=== PATIENT | female | born 1960 | race Two or more races ===

== ENCOUNTER 2024-04-28 11:31 | Emergency (ER) | payer MEDICAID, SELFPAY ==
[2024-04-28 13:00] VITALS: BP 148/82; PULSE 82; RESP 18; TEMP 37.2; O2SAT 96; BMI 31.4
--- NOTE | 2024-04-28 13:03 | XR_ITS ---
Examination: PA lateral chest 2 views Technique: Upright PA lateral chest 2 views Exam date and time: April 28, 2024 1335 hrs. Comparison October 10, 2018 Indication: Chest pain shortness of breath fever vomiting beginning 2 days ago Findings: Mild enlargement left ventricle Mild ectasia thoracic aorta No lobar pneumonia No pulmonary edema Impression: Mild prominence of ventricle No pneumonia or pulmonary edema
--- NOTE | 2024-04-28 13:03 | EKG_ITS ---
[facility] Test Date: 2024-04-28 Pat Name: FINN BRASHER Department: Room: - Gender: Female Manufacturing Planner: : 1960 Requested By: Coral Rader Order Number: [id number] Reading MD: Coral Rader Measurements Intervals [place] Rate: 72 P: -6 NV: 157 QRS: 0 QRSD: 83 T: 60 QT: 384 QTc: 420 Interpretive Statements SINUS RHYTHM LOW QRS VOLTAGE IN PRECORDIAL LEADS [QRS DEFLECTION < 1.0 mV IN CHEST LEADS] ANTERIOR MYOCARDIAL INFARCTION , PROBABLY OLD [40+ ms Q WAVE AND/OR ST/T ABNORMALITY IN V3/V4] INFERIOR MYOCARDIAL INFARCTION , PROBABLY OLD [40+ ms Q WAVE AND/OR ST/T ABNORMALITY IN II/aVF] Compared to ECG 10/13/2022 14:34:08 Low QRS voltage now present Myocardial infarct finding still present /store/S0/[id number].pdf
--- NOTE | 2024-04-28 13:04 | PD.EDRME ---
Rapid Medical Screening Exam RME Arrival date/time: 04/28/24 11:31 This is a 63-year-old female that comes in with complaints of chest pain, shortness of breath, fever, vomiting, diarrhea, fatigue, weakness, and headache that started 2 days ago. Patient states her also is sick. Patient has a history of diabetes, hyperlipidemia, diverticulosis, high blood pressure, hypothyroid, neuropathy. Patient reports a history of a hysterectomy in the past. I have greeted and performed a focused initial assessment of this patient. Initial appropriate labs ordered at this time. A comprehensive ED assessment and evaluation of the patient and analysis of all test and completion of medical decision making process will be conducted by additional ED provider. Chief Complaint: Flu Like Symptoms Time Seen by Provider: 04/28/24 11:59 Vital signs: Vital Signs Temperature 98.9 F 04/28/24 13:00 Pulse Rate 82 04/28/24 13:00 Respiratory Rate 18 04/28/24 13:00 Blood Pressure 148/82 H 04/28/24 13:00 Pulse Oximetry (%) 96 04/28/24 13:00 Oxygen Delivery Method Room Air 04/28/24 13:00
[2024-04-28] MEDS: ACETAMINOPHEN 500 MG TABLET 1000 MG PO (13:30)
[2024-04-28] MEDS: IBUPROFEN TAB 400 MG TABLET 800 MG PO (13:30)
[2024-04-28 14:22] LABS: Basophils # (Auto) 0.1 Thou/mm3 (0.0-0.2); Basophils % (Auto) 1 % (0-2.5); Eosinophils # (Auto) 0.1 Thou/mm3 (0.0-0.5); Eosinophils % (Auto) 1 % (0-10); Hematocrit 42.2 % (36.0-46.0); Hemoglobin 14.7 g/dL (12.0-16.0); Immature Granulocytes % (Auto) 1 % (0-0); Immature Granulocytes Auto 0.04 Thou/mm3 (0.00-0.00); Lymphocytes # (Auto) 1.6 Thou/mm3 (1.0-4.8); Lymphocytes % (Auto) 25 % (10-50); Mean Corpuscular HGB Conc 34.8 g/dl (31.0-37.0); Mean Corpuscular Hemoglobin 30.8 pg (25.0-35.0); Mean Corpuscular Volume 88 fL (80-100); Monocytes # (Auto) 0.9 Thou/mm3 (0.0-0.8); Monocytes % (Auto) 14 % (0-12); Neutrophils # (Auto) 3.6 Thou/mm3 (1.8-7.7); Neutrophils % (Auto) 58 % (37-80); Nucleated Red Blood Cell % 0 /100 WBC (0); Platelet Count 280 Thou/mm3 (140-440); RDW Standard Deviation 39.6 fL (36.4-46.3); Red Blood Count 4.78 Miln/mm3 (4.00-5.20); White Blood Count 6.3 Thou/mm3 (3.6-11.0)
[2024-04-28 14:41] LABS: B-Type Natriuretic Peptide 67 pg/mL (0-100)
[2024-04-28 14:42] LABS: Alanine Aminotransferase 32 U/L (10-49); Albumin, Serum 4.4 gm/dL (3.4-4.8); Albumin/Globulin Ratio 1.9 (1.2-2.2); Alkaline Phosphatase 104 U/L (46-116); Anion Gap 7 (7-16); Aspartate Amino Transferase 25 U/L (0-34); BUN/Creatinine Ratio 11 Ratio (12-20); Bilirubin,Total 0.5 mg/dL (0.3-1.2); Blood Urea Nitrogen 9 mg/dL (9-23); Calcium 9.6 mg/dL (8.3-10.6); Calcium (Corrected) 9.6 mg/dL (8.5-10.1); Carbon Dioxide 28.6 mMol/L (20.0-31.0); Chloride 105 mMol/L (98-107); Creatinine (Component) 0.8 mg/dL (0.6-1.3); Estimated Creatinine Clearance 79.8 mL/min (>60); Globulin 2.3 gm/dL (2.3-3.5); Glucose 116 mg/dL (74-106); Osmolality,Calculated 280 (275-295); Potassium 3.8 mMol/L (3.4-5.1); Sodium 141 mMol/L (136-145); Total Protein 6.7 gm/dL (5.7-8.2); Troponin I < 0.020 ng/mL (0.0-0.045); eGFR > 60 See Note
--- NOTE | 2024-04-28 15:34 | PD.EDURI ---
Upper Respiratory Inf. RME/HPI General Chief Complaint: Flu Like Symptoms Stated Complaint: COUGH WITH SOB X YESTERDAY Time Seen by Provider: 04/28/24 11:59 Arrival date/time: 04/28/24 11:31 RME / HPI RME / HPI Narrative: 04/28/24 11:31 This is a 63-year-old female that comes in with complaints of chest pain, shortness of breath, fever, vomiting, diarrhea, fatigue, weakness, and headache that started 2 days ago. Patient states her also is sick. Patient has a history of diabetes, hyperlipidemia, diverticulosis, high blood pressure, hypothyroid, neuropathy. Patient reports a history of a hysterectomy in the past. I have greeted and performed a focused initial assessment of this patient. Initial appropriate labs ordered at this time. A comprehensive ED assessment and evaluation of the patient and analysis of all test and completion of medical decision making process will be conducted by additional ED provider. DR. PATRICK MAIN ED EVALUATION: 63 year old female presents to the Emergency Department with complaints of cough, congestion, fatigue, generalized weakness, mild headache, generalized body aches, chest pain, vomiting, and diarrhea. Onset of symptoms 2 days. Symptoms are mild to moderate. Denies any abdominal pain or other symptoms at this time. PMHx: Diabetes, hypertension, neuropathy, hypothyroidism. Hysterectomy. Social Hx: No tobacco, alcohol, or substance use. Related Data Home Medications ?Medication ?Instructions ?Recorded ?Confirmed metformin 500 mg tablet 500 mg PO BID DIABETES ##0 06/27/12 03/19/19 gabapentin 300 mg capsule 300 mg PO TID #0 caps 03/07/17 03/19/19 levothyroxine 25 mcg capsule 25 mcg PO QDAY 01/04/18 03/19/19 simvastatin 20 mg tablet 20 mg PO HS 01/04/18 03/19/19 lisinopril 10 mg tablet 10 mg PO QDAY 02/20/19 03/19/19 ergocalciferol (vitamin D2) 1,250 50,000 unit PO QWEEK 03/19/19 03/19/19 mcg (50,000 unit) capsule (Vitamin D2) sitagliptin phosphate 100 mg 100 mg PO QDAY 03/19/19 03/19/19 tablet (Januvia) Previous Rx's ?Medication ?Instructions ?Recorded diazepam 2 mg tablet (Valium) 2 mg PO BID PRN anxiety #10 tabs 06/19/23 azithromycin 250 mg tablet See Rx Instructions PO .COMPLEX #6 04/28/24 (Zithromax Z-Silverio) tabs oseltamivir 75 mg capsule (Tamiflu) 75 mg PO BID 5 days #10 caps 04/28/24 Allergies Allergy/AdvReac Type Severity Reaction Status Date / Time adhesive tape Allergy Severe Rash Verified 04/28/24 11:32 hydroxyzine Allergy Severe Hives Verified 04/28/24 11:32 prochlorperazine Allergy Severe Swelling Verified 04/28/24 11:32 temazepam [From Restoril] Allergy Severe Hives Verified 04/28/24 11:32 Review of Systems Review of Systems Systems Reviewed: All systems reviewed, normal except as documented Narrative Review of Systems: GEN: No fever, no chills, no weight loss, + fatigue/ generalized weakness EYES: No discharge, no visual changes, no pain HEENT: No ear pain, + congestion, no sore throat PULM: No shortness of breath, + cough, + congestion CV: + chest pain, no dyspnea on exertion, no palpitations GI: No nausea, + vomiting, + diarrhea, no pain, no constipation : No frequency, no urgency and no dysuria MUSC/SKEL: + generalized body aches, no back pain SKIN: No rash PSYCH: No hallucinations, no depression HEME/LYMPH: No easy bleeding or bruising tendencies NEURO: No one-sided weakness, + mild headache Past Medical History Past Medical History NEUROLOGIC: Positive Neurological Disorders, Peripheral Neuropathy and Migraine CARDIAC: Positive Hypercholesterolemia and Hypertension; Negative Cardiac Disorders or Congestive Heart Failure RESPIRATORY: Positive Sleep Apnea; Negative Chronic Obstructive Pulmonary Disease (COPD) or Asthma GASTROINTESTINAL: Positive Gastrointestinal Disorders, Gall Bladder Disease, Diverticulitis, Irritable Bowel and Gastroesophageal Reflux Disease GENITOURINARY: Negative Genitourinary Disorders or Renal Disease REPRODUCTIVE: Positive Previous Pregnancies MUSCULOSKELETAL: Positive Musculoskeletal Disorders ENT: Positive Cataracts ENDOCRINE: Positive Endocrine Disorders, Diabetes Mellitus Type 2 and Hypothyroidism; Negative Diabetes Mellitus Type 1 HEMATOLOGIC: Negative Blood Disorders or Sickle Cell Disease PSYCHO/SOCIAL: Positive Anxiety OTHER HISTORY: Positive Chicken Pox, Measles, Mumps, Cancer and Ovarian Cancer Family History FAMILY HISTORY: Positive Family Cardiac Disorders and Family Cancer Surgical History SURGICAL: Positive Tonsillectomy, Throat Surgery, Abdominal Surgery, Hysterectomy and Tubal Ligation Social History SMOKING STATUS: Never smoker SUBSTANCE USE: does not use ALCOHOL: Never ED Exam Narrative Physical exam: GENERAL APPEARANCE: Well hydrated, well nourished, in no acute distress. VITALS: All vitals were reviewed and the pulse ox is 96% on room air which is normal according to my interpretation. HEENT: Normocephalic, atramatic, EOMI, EACs are patent. There is no bulge or retraction. Throat without erythema or exudate. Moist oromucosa. No jaundice NECK: Supple, no JVD or bruits. CARDIOVASCULAR: Heart regular without S3-S4 or murmur. No rubs or gallops. LUNGS/CHEST: Clear to auscultation bilaterally. No rales, rhonchi, or wheezing. Normal inspection. ABDOMEN: Soft, nontender, with normal bowel sounds. No pulsatile masses. No rebound, rigidity, or guarding. No incarcerated hernia. Normal inspection and palpation. EXTREMITIES: No edema, clubbing, or cyanosis. Intact CSM. Normal inspection and palpation. SKIN: Warm and dry without rashes. Normal inspection. MUSCULOSKELETAL: No gross deformity, full ROM all extremities. Normal inspection. NEURO: Alert and oriented x3. Cranial nerves II through XII grossly intact. There are no other motor or sensory deficits noted. PSYCHIATRIC: Normal mood and affect. No psychosis. Course Quality Measures none Orders Category Date Time Status Bedside COVID-19 Antigen Test NOW Care 04/28/24 13:03 Active Bedside Influenza A&B Antigen Test NOW Care 04/28/24 13:03 Completed EKG (ED ONLY) *Do not use* NOW Care 04/28/24 13:03 Completed EKG (ED Only) Stat Exams 04/28/24 13:03 Draft XR chest 2V Stat Exams 04/28/24 13:03 Taken BNP [B-Type Natriuretic Peptide] Stat Lab 04/28/24 14:12 Completed CBC Stat Lab 04/28/24 14:12 Completed Comprehensive Metabolic Panel Stat Lab 04/28/24 14:12 Completed Troponin I Stat Lab 04/28/24 14:12 Completed Acetaminophen Tab [Tylenol ES Tab] Med 04/28/24 13:03 Discontinued 1,000 mg PO X1 ONE Ibuprofen Tab [Motrin Tab] Med 04/28/24 13:03 Discontinued 800 mg PO X1 ONE Vital Signs Vital signs: Vital Signs Temperature 98.9 F 04/28/24 13:00 Pulse Rate 82 04/28/24 13:00 Respiratory Rate 18 04/28/24 13:00 Blood Pressure 148/82 H 04/28/24 13:00 Pulse Oximetry (%) 96 04/28/24 13:00 Oxygen Delivery Method Room Air 04/28/24 13:00 Upper Respiratory Infection MDM Narrative MDM Narrative:: I, Julita Kong, am scribing for and in the presence of Dr. Patrick. CBC negative. CMP negative. Troponin negative. BNP negative. COVID-19 negative. Influenza A is positive. Chest x-ray by me: Evidence of the left lower lobe infiltrates on the chest x-ray. Heart is normal. Mediastinum normal. Normal bones. Twelve-lead EKG that was done at 1318 and interpreted by me: Normal sinus rhythm. Heart rate is now 72. Normal axis. No ST elevation or depression. No PVC. No STEMI. Regular rate and rhythm. Old Q waves in leads III, aVF and V3 V4. Patient is walking talking. No respiratory distress. And not sick looking. The pneumonia may be secondary to a superimposed bacterial infection. Therefore in addition to the Tamiflu I will also prescribe her some Zithromax. She should follow-up with her medical doctor in 3 days for recheck further care and repeat a chest x-ray. She should return the emergency department if condition worsens or if new symptoms develop. Patient data External records reviewed:: [facility] previous records (Reviewed last ED visit dated 06/19/23, discharged with the following: Contusion of arm, multiple sites.) Clinical information provided by:: patient Social determinants that could affect healthcare access:: none Patient has the following chronic illnesses:: Diabetes, hypertension, neuropathy, hypothyroidism. Hysterectomy. How is presenting disease/condition affected by chronic disease/condition?: uneffected by Evaluation data The following diagnostics were reviewed and interpreted by me:: lab results, radiology exam(s) and EKG tracing(s) Lab and/or radiology exams considered but not ordered:: none Interpretation Summary: See above under MDM narrative. Medications / Prescriptions Medications or Prescriptions considered but not ordered:: none Medication administrations:: Medication Administration History Discontinued Medications Acetaminophen (Acetaminophen 500 Mg Tablet) 1,000 mg PO X1 ONE Stop: 04/28/24 13:04 Last Admin: 04/28/24 13:30 Dose: 1,000 mg Documented By: GENEVIEVE Ibuprofen (Ibuprofen Tab 400 Mg Tablet) 800 mg PO X1 ONE Stop: 04/28/24 13:04 Last Admin: 04/28/24 13:30 Dose: 800 mg Documented By: GENEVIEVE see above Consultations Consultation(s) initiated? (list below): No Diagnosis Upper Respiratory Differential Diagnosis: upper respiratory infection, viral infection, bronchitis and influenza Most likely diagnosis given after review of the tests above:: Pneumonia Influenza A positive Admission Indicated Admission indicated?: not indicated Admission Request Was there a request for admission?: No Disposition Plan Disposition Plan: Discharge Discharge Attestation Discharge Attestation: The patient and all family members were given an opportunity to ask questions and understood the discharge instructions. Discharge instructions specifically effects, indications for sooner follow up or return to the emergency department, and the expected course of current diagnosis. Patient condition: Stable Discharge Plan Plan Patient Disposition: HOME (Self Care) Disposition Comment: Stable to go home Prescriptions/Referrals Prescriptions/Med Rec: New oseltamivir [Tamiflu] 75 mg capsule 75 mg PO BID 5 Days Qty: 10 0RF azithromycin [Zithromax Z-Silverio] 250 mg tablet See Rx Instructions PO .COMPLEX Qty: 6 0RF Rx Instructions: For 250 mg dose pack: take 500 mg today (day 1), then 250 mg for 4 days (days 2-5) No Action metformin 500 mg Tablet 500 mg PO BID Qty: 0 gabapentin 300 MG capsule 300 mg PO TID Qty: 0 lisinopril 10 mg Tablet 10 mg PO QDAY simvastatin 20 mg Tablet 20 mg PO HS levothyroxine 25 mcg Capsule 25 mcg PO QDAY ergocalciferol (vitamin D2) [Vitamin D2] 50,000 unit Capsule 50,000 unit PO QWEEK Januvia 100 mg Tablet 100 mg PO QDAY diazepam [Valium] 2 mg tablet 2 mg PO BID PRN (Reason: anxiety) Qty: 10 0RF Referrals: Alejandro Bates MD [Primary Care Provider] - In 1 week Problem List Clinical Impression: Pneumonia, Influenza A Patient/Caregiver Discharge Instructions Education Materials: Treating Pneumonia, ED Influenza (Adult) Additional Instructions: Medication they prescribed. Follow-up with your medical doctor in 3 days. Return the emergency department if condition worsens or if new symptoms develop. He can also take Motrin and Tylenol for the pain and fever. Print Language: Romansh Stand Alone Forms: [employer] Info., Patient Portal Info Letter
== END 2024-04-28 16:26 | disposition home or self-care (01) ==
PROVIDERS: Nurse Practitioner Family; Emergency Provider Emergency Medicine; PCP Family Medicine
DX: J10.00 Influenza due to other identified influenza virus with unspecified type of pneumonia (principal); E78.5 Hyperlipidemia, unspecified; E03.9 Hypothyroidism, unspecified; E11.42 Type 2 diabetes mellitus with diabetic polyneuropathy
CPT/HCPCS: 36415; 71046; 80053; 83880; 84484; 85025; 87400; 87811; 93005; 99283; A9270

== ENCOUNTER 2024-10-16 23:20 | Emergency (ER) | payer MEDICAID, SELFPAY ==
[2024-10-16 23:22] VITALS: BMI 30.7
--- NOTE | 2024-10-16 23:26 | EKG_ITS ---
[facility] Test Date: 2024-10-16 Pat Name: FINN BRASHER Department: Room: - Gender: Female Colorist: : 1960 Requested By: ED Temporary Provider Order Number: [id number] Reading MD: ED Temporary Provider Measurements Intervals [place] Rate: 82 P: 13 FL: 164 QRS: 3 QRSD: 82 T: 89 QT: 374 QTc: 438 Interpretive Statements SINUS RHYTHM WITH SINUS ARRHYTHMIA POSSIBLE ANTERIOR MYOCARDIAL INFARCTION , PROBABLY OLD [30 ms Q WAVE IN V3/V4, OR R < 0.2 mV IN V4] POSSIBLE INFERIOR MYOCARDIAL INFARCTION , PROBABLY OLD [30 ms Q WAVE IN II/aVF] Compared to ECG 04/28/2024 13:18:37 No significant changes /store/S0/[id number].pdf
[2024-10-16 23:42] VITALS: BP 145/93; PULSE 82; RESP 20; TEMP 36.8; O2SAT 97
--- NOTE | 2024-10-17 00:05 | XR_ITS ---
Examination: PA chest single view TECHNIQUE: Upright PA chest single view Date and time: October 17, 2024 12:32 AM INDICATIONS: Left upper abdominal pain chest pain nausea vomiting today FINDINGS: Normal heart size Lungs are clear. Osseous structures are intact IMPRESSION: No active disease
--- NOTE | 2024-10-17 00:07 | PD.EDRME ---
Rapid Medical Screening Exam RM Arrival date/time: 10/16/24 23:20 64F with history of HTN, DM, hypothyroidism, and anxiety presents to ED with 1 week of LUQ pain. Today, she started having CP and N/V. Chief Complaint: Abdominal Pain Vital signs: Vital Signs Temperature 98.3 F 10/16/24 23:42 Pulse Rate 82 10/16/24 23:42 Respiratory Rate 20 10/16/24 23:42 Blood Pressure 145/93 H 10/16/24 23:42 Pulse Oximetry (%) 97 10/16/24 23:42 Oxygen Delivery Method Room Air 10/16/24 23:42
[2024-10-17] MEDS: FAMOTIDINE 20 MG TABLET 40 MG PO (00:19)
[2024-10-17] MEDS: Aspirin 325 MG TABLET PO (00:19)
[2024-10-17] MEDS: ONDANSETRON ODT 4 MG TABRAP PO (00:19)
[2024-10-17] MEDS: MG HYD/AL HYD/SIME (Maalox Reg) SUSP 30 ML UDC PO (00:20)
[2024-10-17 00:25] LABS: Basophils % (Auto) 0 % (0-2.5); Eosinophils # (Auto) 0.1 Thou/mm3 (0.0-0.5); Eosinophils % (Auto) 1 % (0-10); Hematocrit 41.5 % (36.0-46.0); Hemoglobin 15.4 g/dL (12.0-16.0); Immature Granulocytes % (Auto) 1 % (0-0); Immature Granulocytes Auto 0.06 Thou/mm3 (0.00-0.00); Lymphocytes # (Auto) 1.4 Thou/mm3 (1.0-4.8); Lymphocytes % (Auto) 12 % (10-50); Mean Corpuscular HGB Conc 37.1 g/dl (31.0-37.0); Mean Corpuscular Volume 84 fL (80-100); Monocytes # (Auto) 0.8 Thou/mm3 (0.0-0.8); Monocytes % (Auto) 8 % (0-12); Neutrophils # (Auto) 8.6 Thou/mm3 (1.8-7.7); Neutrophils % (Auto) 78 % (37-80); Nucleated Red Blood Cell % 0 /100 WBC (0); Platelet Count 275 Thou/mm3 (140-440); RDW Standard Deviation 38.1 fL (36.4-46.3); Red Blood Count 4.97 Miln/mm3 (4.00-5.20)
[2024-10-17 00:42] LABS: B-Type Natriuretic Peptide 20 pg/mL (0-100)
[2024-10-17 00:43] LABS: Alanine Aminotransferase 21 U/L (10-49); Albumin, Serum 4.4 gm/dL (3.4-4.8); Alkaline Phosphatase 101 U/L (46-116); Anion Gap 9 (7-16); Aspartate Amino Transferase 20 U/L (0-34); BUN/Creatinine Ratio 19 Ratio (12-20); Bilirubin,Total 0.6 mg/dL (0.3-1.2); Blood Urea Nitrogen 15 mg/dL (9-23); Calcium 9.4 mg/dL (8.3-10.6); Calcium (Corrected) 9.4 mg/dL (8.5-10.1); Carbon Dioxide 25.8 mMol/L (20.0-31.0); Chloride 103 mMol/L (98-107); Creatinine (Component) 0.8 mg/dL (0.6-1.3); Globulin 2.2 gm/dL (2.3-3.5); Glucose 147 mg/dL (74-106); Lipase 195 U/L (12-53); Osmolality,Calculated 279 (275-295); Potassium 3.7 mMol/L (3.4-5.1); Sodium 138 mMol/L (136-145); Total Protein 6.6 gm/dL (5.7-8.2); Troponin I < 0.020 ng/mL (0.0-0.045); eGFR > 60 See Note
[2024-10-17 00:46] LABS: INR 1.1 (0.9-1.3); Partial Thromboplastin Time 27.5 Seconds (22.0-36.0); Prothrombin Time 12.1 Seconds (9.0-12.2)
[2024-10-17 01:31] LABS: Collection Type, Urine Clean Catch
[2024-10-17 01:37] LABS: Bilirubin,Urine Negative (Negative); Blood,Urine Negative (Negative); Clarity,Urine Clear (Clear/Hazy); Color,Urine Lt-Yellow (Lt Yel-Yel); Glucose, Urine Trace (Negative); Ketones,Urine Negative (Negative); Leukocyte Esterase,Urine Positive (Negative); Nitrite,Urine Negative (Negative); Protein,Urine Negative (Neg - Trace); RBC,Urine 3 /hpf (0-3); Specific Gravity,Urine 1.025 (1.001-1.035); Squamous Epithelial Cell,Urine 3 /hpf (0-5); Urobilinogen,Urine Negative mg/dL (0.0-1.0); WBC,Urine 4 /hpf (0-5)
[2024-10-17 04:24] LABS: D-Dimer < 250 ng/mL (<600)
[2024-10-17 04:25] LABS: Troponin I < 0.002 ng/mL (0.0-0.045)
--- NOTE | 2024-10-17 04:52 | PRELIM_ITS ---
Radiograph of the chest (single view). October 17, 2024 at 0031 hours Clinical history: Chest pain. Comparison: No prior study is available for comparison. Findings: Cardiomegaly. No pneumothorax. The lungs are clear. There is no pleural effusion. No acute fractures. Spinal hardware, partially imaged. Impression: Normal radiograph of the chest. Report Electronically Signed By: Venu Carter 10/17/2024 4:52:21 AM [EST]
--- NOTE | 2024-10-17 04:54 | XR_ITS ---
Examination: CT chest, without intravenous contrast. Sagittal and coronal 2-D reconstructions. Exam date and time: 2024 0623 hours Comparison June 18, 2023 INDICATIONS: Chest pain nausea vomiting today CTDI:vol (mGy) 14.7 DLP: (mGycm) 149 Technique: Multiple 3.0 mm axial sections of the chest to been obtained. Bone and lung density settings are obtained. Sagittal and coronal 2-D reconstructions have been obtained. Low dose protocols were performed. One or more of the following dose reduction techniques were used; automated exposure control, adjustment of the mA and/or KV according to patient size, use of iterative reconstruction technique. Findings: No thoracic aortic aneurysmal dilatation Pulmonary artery segments are not enlarged No paratracheal tracheobronchial or bronchopulmonary adenopathy No pneumothorax, no pneumomediastinum No pneumonia or pulmonary edema No visualized liver or splenic lesion Absent gallbladder No pancreatic or adrenal mass Moderate renal parenchymal scar formation Diffuse mild to moderate thoracic degenerative disc disease Impression : No mediastinal lymphadenopathy Negative for pneumomediastinum No pneumonia, pulmonary edema or pleural disease
[2024-10-17] MEDS: HYDROcodone/APAP 5/325 TABLET 1 TAB PO (05:24)
[2024-10-17 06:19] VITALS: BP 141/83; PULSE 81; RESP 17; TEMP 36.7; O2SAT 97
--- NOTE | 2024-10-17 08:10 | EDNOTE_ITS ---
ED General RME/HPI General Chief complaint: Abdominal Pain Stated complaint: LUQ PAIN WITH CHEST PAIN Time Seen by Provider: 10/17/24 08:20 Arrival date/time: 10/16/24 23:20 Limitations: no limitations RME / HPI RME / HPI narrative: 10/16/24 23:20 64F with history of HTN, DM, hypothyroidism, and anxiety presents to ED with 1 week of LUQ pain. Today, she started having CP and N/V. DR. CH MAIN ED EVALUATION: 64 year old female with past medical history significant for hypertension, diabetes, hypothyroidism, and anxiety presents to the Emergency Department with complaints of abdominal pain in the epigastric area and left upper quadrant area. Assocaited symptos include chest pain, nasuea, and vomiting. No diarrhea or other symptos at this time. Related Data Home Medications ?Medication ?Instructions ?Recorded ?Confirmed metformin 500 mg tablet 500 mg PO BID DIABETES ##0 0 06/27/12 03/19/19 gabapentin 300 mg capsule 300 mg PO TID #0 caps 03/19/19 levothyroxine 25 mcg capsule 25 mcg PO QDAY 01/04/18 1 05/19/18 simvastatin 20 mg tablet 20 mg PO HS 01/04/18 9 lisinopril 10 mg tablet 10 mg PO QDAY 02/20/1903/19 ergocalciferol (vitamin D2) 1,250 50,000 unit PO QWEEK 03/19/19 03/19/19 mcg (50,000 unit) capsule (Vitamin D2) sitagliptin phosphate 100 mg 100 mg PO QDAY 03/19/19 1 05/19/18 tablet (Januvia) Previous Rx's ?Medication ?Instructions ?Recorded diazepam 2 mg tablet (Valium) 2 mg PO BID PRN anxiety #10 tabs 06/19/23 azithromycin 250 mg tablet See Rx Instructions PO .COM PLEX #6 04/28/24 (Zithromax Z-Silverio) tabs Allergies Allergy/AdvReac Type Severity Reaction Status Date / Time adhesive tape Allergy Severe Rash Verified 04/28/24 11:32 hydroxyzine Allergy Severe Hives Verified 04/28/24 11:32 prochlorperazine Allergy Severe Swelling Verified 04/28/24 11:32 temazepam (From Restoril) Allergy Severe Hives Verified 04/28/24 11:32 Review of Systems Review of Systems Systems Reviewed: All systems reviewed, normal except as documented Past Medical History Past Medical History NEUROLOGIC: Positive Neurological Disorders, Peripheral Neuropathy and Migraine CARDIAC: Positive Hypercholesterolemia and Hypertension RESPIRATORY: Positive Sleep Apnea GASTROINTESTINAL: Positive Gastrointestinal Disorders, Gall Bladder Disease, D iverticulitis, Irritable Bowel and Gastroesophageal Reflux Disease REPRODUCTIVE: Positive Previous Pregnancies MUSCULOSKELETAL: Positive Musculoskeletal Disorders ENT: Positive Cataracts ENDOCRINE: Positive Endocrine Disorders, Diabetes Mellitus Type 2 and Hypothyroidism PSYCHO/SOCIAL: Positive Anxiety OTHER HISTORY: Positive Chicken Pox, Measles, Mumps, Cancer and Ovarian Cancer Family History FAMILY HISTORY: Positive Family Cardiac Disorders and Family Cancer Surgical History SURGICAL: Positive Tonsillectomy, Throat Surgery, Abdominal Surgery, Hysterectomy and Tubal Ligation Social History SMOKING STATUS: Never smoker SUBSTANCE USE: does not use ALCOHOL: Never ED Exam General Limitations: Present no limitations General appearance: Present alert and in no apparent distress Head Head exam: Present atraumatic, normocephalic and normal inspection Eye Eye exam: Present normal appearance, PERRL and EOMI ENT ENT exam: Present normal exam, normal oropharynx and mucous membranes moist Neck Neck exam: Present normal inspection, full ROM and trachea midline Chest Chest inspection: Present normal inspection and symmetric chest wall rise Respiratory Respiratory exam: Present normal lung sounds bilaterally Cardiovascular Cardiovascular exam: Present regular rate, normal rhythm and normal heart sounds Abdominal Exam Abdominal exam: Present tenderness (slight tenderness in the left upper quadrant) and normal bowel sounds; Absent rebound or rigidity Extremities Exam Extremities exam: Present normal inspection and full ROM Back Exam Back exam: Present normal inspection and full ROM Neurological Exam Neurological exam: Present alert, oriented X3 and CN II-XII intact Psychiatric Psychiatric exam: Present normal affect and normal mood Skin Skin exam: Present warm, dry, intact and normal color Course Quality Measures none Orders Category Date Time Status Bedside Blood Glucose NOW Care 10/17/24 10:[address] Screening NOW Care 10/17/24 08:58 Active EKG (ED ONLY) *Do not use* NOW Care 10/16/24 23:26 Completed Insert IV NOW Care 10/17/24 09:[address] abdomen pelvis w con Stat Exams 10/17/24 08:[address] chest wo con Stat Exams 10/17/24 04:54 Completed EKG (ED Only) Stat Exams 10/16/24 23:26 Draft XR chest 1V portable Stat Exams 10/17/24 00:05 Completed B-Type Natriuretic Peptide Stat Lab 10/17/24 00:13 Completed CBC Stat Lab 10/17/24 00:13 Completed Comprehensive Metabolic Panel Stat Lab 10/17/24 00:13 Completed D-Dimer Stat Lab 10/17/24 03:48 Completed Lipase Stat Lab 10/17/24 00:13 Completed Magnesium Stat Lab 10/17/24 00:13 Completed Partial Thromboplastin Time Stat Lab 10/17/24 00:13 Completed Prothrombin Time with INR Stat Lab 10/17/24 00:13 Completed Troponin I Stat Lab 10/17/24 00:13 Completed Troponin I Stat Lab 10/17/24 03:48 Completed Urinalysis Stat Lab 10/17/24 01:25 Completed Aspirin Med 10/17/24 00:05 Discontinued 325 mg PO X1 ONE Ciprofloxacin HCl [Ciprofloxacin] Med 10/17/24 08:24 Discontinued 500 mg PO X1 ONE DiphenhydrAMINE [Benadryl] Med 10/17/24 08:24 Discontinued 25 mg PO X1 ONE Famotidine [Pepcid] Med 10/17/24 00:05 Discontinued 40 mg PO X1 ONE HYDROcodone*/APAP 5/325 [[place] 5/325] Med 10/17/24 05:20 Discontinued 1 tab PO X1 ONE Ketorolac Inj [Toradol Inj] Med 10/17/24 10:14 Discontinued 30 mg IVP X1 ONE Metoclopramide [Reglan] Med 10/17/24 08:24 Discontinued 10 mg PO X1 ONE Ondansetron Inj [Zofran Inj] Med 10/17/24 09:20 Discontinued 4 mg IVP X1 ONE Ondansetron Odt [Zofran Odt] Med 10/17/24 00:05 Discontinued 4 mg PO X1 ONE Sodium Chloride 0.9% 1000 ml [Ns] 1,000 ml Med 10/17/24 09:20 Discontinued IV 999 mls/hr metroNIDAZOLE [Flagyl] Med 10/17/24 08:24 Discontinued 500 mg PO X1 ONE mg Hyd/Al Hyd/Flash Susp [Maalox Susp] Med 10/17/24 00:05 Discontinued 30 ml PO X1 ONE Vital Signs Vital signs: Vital Signs Temperature 98.3 F 10/16/24 23:42 Pulse Rate 82 10/16/24 23:42 Respiratory Rate 20 10/16/24 23:42 Blood Pressure 145/93 H 10/16/24 23:42 Pulse Oximetry (%) 97 10/16/24 23:42 Oxygen Delivery Method Room Air 10/16/24 23:42 Discharge Plan Plan Patient Disposition: Admit Acute Care w/in Hospital Discharge Disposition comment: acute diverticulitis Prescriptions/Referrals Prescriptions/Med Rec: No Action metformin 500 mg Tablet 500 mg PO BID Qty: 0 gabapentin 300 MG capsule 300 mg PO TID Qty: 0 lisinopril 10 mg Tablet 10 mg PO QDAY simvastatin 20 mg Tablet 20 mg PO HS levothyroxine 25 mcg Capsule 25 mcg PO QDAY ergocalciferol (vitamin D2) [Vitamin D2] 50,000 unit Capsule 50,000 unit PO QWEEK Januvia 100 mg Tablet 100 mg PO QDAY diazepam [Valium] 2 mg tablet 2 mg PO BID PRN (Reason: anxiety) Qty: 10 0RF azithromycin [Zithromax Z-Silverio] 250 mg tablet See Rx Instructions PO .COMPLEX Qty: 6 0RF Rx Instructions: For 250 mg dose pack: take 500 mg today (day 1), then 250 mg for 4 days (days 2-5) Referrals: Alejandro Bates MD [Primary Care Provider] - In 1 week Problem List Clinical Impression: Dizziness of unknown cause, Diverticulitis Patient/Caregiver Discharge Instructions Print Language: Sinhala Stand Alone Forms: Marine Award Info., Patient Portal Info Letter [facility] Narrative [facility] hospital course: I, Julita Kong, am scribing for and in the presence of Dr. Ch. Differential diagnosis: Likely gastroenteritis, diverticulitis, pancreatitis, UTI, kidney stones. Plan: CT scan Labs are unremarkable. EKG normal. CXR normal. U/A normal. Patient has dizziness of unknown cause and diverticulitis Cipro and flagyl and discharge. 0857: Patient throwing up, will order A/P CT and reassess. Patient will be discharged with dizziness of unknown cause and diverticulitis. Clinical Information Provided by patient Medical Records Reviewed [facility] Meds/Rx Considered, not Ordered None Labs/Rad/Tests considered, not Ordered None Chronic Illness/Social Conditions Add or document further as needed: hypertension, diabetes, hypothyroidism, and anxiety EKG EKG Interpretation narrative: EKG#1: EKG at 2336 hours. Interpreted by me: sinus rhythm, rate 82, no axis deviation, no ischemia, normal intervals Lab Interpretation Labs: see narrative above Imaging Imaging interpretation: see narrative above Provider imaging interpretation(s): Chest x-ray: my interpretation: no acute process Radiology reports / interpretation(s): Procedure(s): CT chest wo con Accession Number(s): [id number] cc: Alejandro Bates MD; Oscar Jackson MD; Rajiv Matos PA-C~ Examination: CT chest, without intravenous contrast. Sagittal and coronal 2-D reconstructions. Exam date and time: 2024 0623 hours Comparison June 18, 2023 INDICATIONS: Chest pain nausea vomiting today CTDI:vol (mGy) 14.7 DLP: (mGycm) 149 Technique: Multiple 3.0 mm axial sections of the chest to been obtained. Bone and lung density settings are obtained. Sagittal and coronal 2-D reconstructions have been obtained. Low dose protocols were performed. One or more of the following dose reduction techniques were used; automated exposure control, adjustment of the mA and/or KV according to patient size, use of iterative reconstruction technique. Findings: No thoracic aortic aneurysmal dilatation Pulmonary artery segments are not enlarged No paratracheal tracheobronchial or bronchopulmonary adenopathy No pneumothorax, no pneumomediastinum No pneumonia or pulmonary edema No visualized liver or splenic lesion Absent gallbladder No pancreatic or adrenal mass Moderate renal parenchymal scar formation Diffuse mild to moderate thoracic degenerative disc disease Impression : No mediastinal lymphadenopathy Negative for pneumomediastinum No pneumonia, pulmonary edema or pleural disease Dictated By: Oscar Jackson MD Procedure(s): CT abdomen pelvis w con Accession Number(s): [id number] cc: Ridge Montaño MD; Alejandro Bates MD; Oscar Jackson MD~ Examination: CT abdomen with intravenous contrast CT pelvis with intravenous contrast 2-D coronal reconstructions 2-D sagittal reconstructions Date and time of exam:October 17, 2024 1016 hours INDICATIONS: Upper abdominal pain radiating to the left flank beginning this morning. CTDI: vol (mGy) 12.1 DLP: (mGycm) 771 Technique: Multiple axial sections of the abdomen and pelvis have been obtained. 64 slice high-resolution scanner used. 3 mm axial sections have been obtained, post intravenous injection 60 cc [id number] 2-D sagittal, coronal reconstructions obtained. Low dose protocols were performed. One or more of the following dose reduction techniques were used; automated exposure control, adjustment of the mA and/or KV according to patient size, use of iterative reconstruction technique. Findings: No focal liver or splenic lesions Absent gallbladder No pancreatic or adrenal mass No renal or ureteral calculi, no hydronephrosis Aorta normal size Normal appendix Tiny fat-containing umbilical hernia Colonic diverticulosis, no diverticulitis Absent uterus No adnexal mass No bladder mass or bladder calculi Extensive lumbar fusion L3-S1 with satisfactory alignment IMPRESSION: No renal or ureteral calculi, no hydronephrosis Normal appendix No bladder mass or bladder calculi Dictated By: Oscar Jcakson MD Medication Administration(s) Medication Administration History Discontinued Medications Hydrocodone Bitart/Acetaminophen (Hydrocodone/Apap 5/325 Tablet) 1 tab PO X1 ONE Stop: 10/17/24 05:21 Last Admin: 10/17/24 05:24 Dose: 1 tab Documented By: VELASQUEZ Al Hydrox/Mg Hydrox/Simethicone (Mg Hyd/Al Hyd/Flash (Maalox Reg) Susp 30 Ml Udc) 30 ml PO X1 ONE Stop: 10/17/24 00:06 Last Admin: 10/17/24 00:20 Dose: 30 ml Documented By: ANAIS Aspirin (Aspirin 325 Mg Tablet) 325 mg PO X1 ONE Stop: 10/17/24 00:06 Last Admin: 10/17/24 00:19 Dose: 325 mg Documented By: ANAIS Ciprofloxacin (Ciprofloxacin Hcl 250 Mg Tablet) 500 mg PO X1 ONE Stop: 10/17/24 08:25 Last Admin: 10/17/24 08:42 Dose: 500 mg Documented By: RONAL Diphenhydramine HCl (Diphenhydramine 25 Mg Capsule) 25 mg PO X1 ONE Stop: 10/17/24 08:25 Last Admin: 10/17/24 08:40 Dose: 25 mg Documented By: RONAL Famotidine (Famotidine 20 Mg Tablet) 40 mg PO X1 ONE Stop: 10/17/24 00:06 Last Admin: 10/17/24 00:19 Dose: 40 mg Documented By: ANAIS Sodium Chloride (Ns) 1,000 mls @ 999 mls/hr IV .Q1H1M ONE Stop: 10/17/24 10:20 Last Infusion: 10/17/24 10:20 Dose: Infused Documented By: Admin: 10/17/24 09:25 Dose: 999 mls/hr Documented By: RONAL Ketorolac Tromethamine (Ketorolac Inj 30 Mg/Ml Vial) 30 mg IVP X1 ONE Stop: 10/17/24 10:15 Last Admin: 10/17/24 10:27 Dose: 30 mg Documented By: RONAL Metoclopramide HCl (Metoclopramide 5 Mg Tablet) 10 mg PO X1 ONE Stop: 10/17/24 08:25 Last Admin: 10/17/24 08:42 Dose: 10 mg Documented By: RONAL Metronidazole (Metronidazole 250 Mg Tablet) 500 mg PO X1 ONE Stop: 10/17/24 08:25 Last Admin: 10/17/24 08:42 Dose: 500 mg Documented By: RONAL Ondansetron HCl (Ondansetron Odt 4 Mg Tabrap) 4 mg PO X1 ONE; Protocol Stop: 10/17/24 00:06 Last Admin: 10/17/24 00:19 Dose: 4 mg Documented By: ANAIS Ondansetron HCl (Ondansetron Inj 2 Mg/Ml Inj 2 Ml) 4 mg IVP X1 ONE; Protocol Stop: 10/17/24 09:21 Last Admin: 10/17/24 09:26 Dose: 4 mg Documented By: RONAL Diagnosis Differential diagnosis: gastroenteritis, diverticulitis, pancreatitis, UTI, kidney stones Most likely dx, and/or detailed dx discussion: Dizziness of unknown cause Diverticulitis Dispositon Disposition: Discharge Home
[2024-10-17] MEDS: DiphenhydrAMINE 25 MG CAPSULE PO (08:40)
[2024-10-17] MEDS: metroNIDAZOLE 250 MG TABLET 500 MG PO (08:42)
[2024-10-17] MEDS: METOCLOPRAMIDE 5 MG TABLET 10 MG PO (08:42)
[2024-10-17] MEDS: CIPROFLOXACIN HCL 250 MG TABLET 500 MG PO (08:42)
--- NOTE | 2024-10-17 08:58 | XR_ITS ---
Examination: CT abdomen with intravenous contrast CT pelvis with intravenous contrast 2-D coronal reconstructions 2-D sagittal reconstructions Date and time of exam:October 17, 2024 1016 hours INDICATIONS: Upper abdominal pain radiating to the left flank beginning this morning. CTDI: vol (mGy) 12.1 DLP: (mGycm) 771 Technique: Multiple axial sections of the abdomen and pelvis have been obtained. 64 slice high-resolution scanner used. 3 mm axial sections have been obtained, post intravenous injection 60 cc [id number] 2-D sagittal, coronal reconstructions obtained. Low dose protocols were performed. One or more of the following dose reduction techniques were used; automated exposure control, adjustment of the mA and/or KV according to patient size, use of iterative reconstruction technique. Findings: No focal liver or splenic lesions Absent gallbladder No pancreatic or adrenal mass No renal or ureteral calculi, no hydronephrosis Aorta normal size Normal appendix Tiny fat-containing umbilical hernia Colonic diverticulosis, no diverticulitis Absent uterus No adnexal mass No bladder mass or bladder calculi Extensive lumbar fusion L3-S1 with satisfactory alignment IMPRESSION: No renal or ureteral calculi, no hydronephrosis Normal appendix No bladder mass or bladder calculi
[2024-10-17] MEDS: SODIUM CHLORIDE 0.9% 1000 ML 1,000 ML 999 ML IV (09:25)
[2024-10-17] MEDS: ONDANSETRON INJ 2 MG/ML INJ 2 ML 4 MG IVP (09:26)
[2024-10-17] MEDS: KETOROLAC INJ 30 MG/ML VIAL IVP (10:27)
[2024-10-17 10:30] VITALS: BP 157/89; PULSE 78; RESP 18; TEMP 36.4; O2SAT 96
[2024-10-17 13:02] VITALS: BP 135/86; PULSE 85; RESP 15; TEMP 36.4; O2SAT 97
== END 2024-10-17 13:03 | disposition admitted as inpatient to this hospital (09) ==
PROVIDERS: Physician Assistant; Emergency Provider Emergency Medicine; PCP Family Medicine
DX: K57.92 Diverticulitis of intestine, part unspecified, without perforation or abscess without bleeding (principal); R42 Dizziness and giddiness; E11.9 Type 2 diabetes mellitus without complications; I10 Essential (primary) hypertension; F41.9 Anxiety disorder, unspecified; R07.9 Chest pain, unspecified; E03.9 Hypothyroidism, unspecified
CPT/HCPCS: 36415; 71045; 71250; 74177; 80053; 81001; 83690; 83735; 83880; 84484; 85025; 85379; 85610; 85730; 93005; 96361; 96374; 96375; 99285; A4649; J1885; J2405; J7030; Q0162; Q9967; A9270

== ENCOUNTER → 2025-02-13 | Outpatient (CLI) | payer MEDICAID, SELFPAY ==
--- NOTE | 2025-02-13 10:49 | XR_ITS ---
EXAMINATION: Thoracic spine 3 views TECHNIQUE: AP lateral: Lateral upper dorsal spine 3 views Date and time: February 13, 2025, 11:45 a.m. INDICATIONS: Mid back pain beginning 1 week ago. FINDINGS: Adequate alignment thoracic vertebral bodies Moderate osteopenia. Moderate thoracic spondylosis. Mild to moderate diffuse thoracic degenerative disc disease. No acute thoracic fracture IMPRESSION: Mild to moderate diffuse thoracic degenerative disc disease
--- NOTE | 2025-02-13 10:49 | XR_ITS ---
EXAMINATION: Abdominal series 3 views including upright PA chest TECHNIQUE: Upright PA chest AP upright AP supine abdomen 3 views Date and time: February 13, 2025, 1131 hours INDICATIONS: Abdominal pain beginning 1 year ago. FINDINGS: Normal heart size Lungs are clear. Lower lumbar fusion Moderate stool throughout the colon No obstruction Surgical clips upper right abdomen No free air IMPRESSION: Moderate stool throughout the colon, no obstruction
--- NOTE | 2025-02-13 10:49 | XR_ITS ---
Examination: Lumbar spine, 5 views Technique: Lumbar spine AP, lateral, coned lateral lower lumbar spine, bilateral obliques 5 views Exam date and time: February 13, 2025, 1130 hours, comparison 11/03/2021 INDICATIONS: Low back pain years, history lower back surgery. FINDINGS: Severe osteopenia Stable lumbar fusion L3-S1 Mild to moderate degenerative disc disease L2-L3, L1-L2 No acute lumbar fracture IMPRESSION: Stable lumbar fusion L3-S1 with satisfactory alignment
== END | disposition home or self-care (01) ==
LOC: CDIM 10:22
PROVIDERS: PCP Nurse Practitioner; Referring Provider Nurse Practitioner; Visit Provider Nurse Practitioner
DX: M43.27 Fusion of spine, lumbosacral region (principal); M51.34 Other intervertebral disc degeneration, thoracic region; K59.00 Constipation, unspecified
CPT/HCPCS: 72072; 72110; 74022

== ENCOUNTER 2025-03-23 06:33 | Emergency (ER) | payer MEDICAID, SELFPAY ==
[2025-03-23 06:35] VITALS: BMI 29.8
[2025-03-23 07:04] VITALS: BP 125/80; PULSE 70; RESP 18; TEMP 36.8; O2SAT 100
--- NOTE | 2025-03-23 07:21 | XR_ITS ---
Examination: Left hip AP, lateral, AP pelvis 3 views Technique: Hip AP lateral, AP pelvis, 3 views Exam date and time: March 23, 2025, 0817 hours INDICATIONS: Onset left hip pain beginning this morning FINDINGS: No left hip fracture or dislocation Mild bilateral hip osteoarthritis Right hip bones of the pelvis intact IMPRESSION: Mild bilateral hip osteoarthritis.
--- NOTE | 2025-03-23 07:21 | XR_ITS ---
Examination: CT abdomen and pelvis without contrast. Coronal 3-D reconstructions. Sagittal 2-D reconstructions. Date and time of exam: March 23, 2025, 0756 hours INDICATIONS: Left hip back pain lower abdominal pain beginning yesterday COMPARISON: October 17, 2024 CTDI: vol (mGy): 11.9 DLP: (mGycm): 645 Technique: Axial images of the abdomen have been obtained, 3 mm slice thickness Intravenous contrast material has not been administered. Low dose protocols were performed. One or more of the following dose reduction techniques were used; automated exposure control, adjustment of the mA and/or KV according to patient size, use of iterative reconstruction technique. Findings: No focal liver or splenic lesions Absent gallbladder No pancreatic or adrenal mass Minimal perinephric stranding No renal or ureteral calculi, no hydronephrosis Aorta normal size Normal appendix No bowel obstruction or diverticulitis Urinary bladder intact No pelvic mass Transpedicular lumbar fusion L3-S1 with anatomic alignment Moderate narrowing hip joints IMPRESSION: Minimal perinephric stranding, no hydronephrosis renal or ureteral calculi Normal appendix No bowel obstruction Transpedicular lumbar fusion L3-S1 with anatomic alignment
--- NOTE | 2025-03-23 07:21 | XR_ITS ---
Examination: Lumbar spine, 5 views Technique: Lumbar spine AP, lateral, coned lateral lower lumbar spine, bilateral obliques 5 views Exam date and time: March 23, 2025, 0817 hours, comparison February 13, 2025 INDICATIONS: Chronic low back pain, more severe today. FINDINGS: Severe osteopenia Lumbar fusion L3-S1 with stable alignment compared with February 13, 2025 Mild disc narrowing above the fusion site Moderate lumbar spondylosis IMPRESSION: Mild disc narrowing above the fusion site No lumbar fracture Moderate lumbar spondylosis
[2025-03-23] MEDS: KETOROLAC INJ 30 MG/ML VIAL IM (07:31)
[2025-03-23 08:06] LABS: Basophils # (Auto) 0.1 Thou/mm3 (0.0-0.2); Basophils % (Auto) 1 % (0-2.5); Eosinophils # (Auto) 0.2 Thou/mm3 (0.0-0.5); Eosinophils % (Auto) 3 % (0-10); Hematocrit 41.2 % (36.0-46.0); Hemoglobin 14.2 g/dL (12.0-16.0); Immature Granulocytes Auto 0.03 Thou/mm3 (0.00-0.00); Lymphocytes # (Auto) 2.4 Thou/mm3 (1.0-4.8); Lymphocytes % (Auto) 33 % (10-50); Mean Corpuscular HGB Conc 34.5 g/dl (31.0-37.0); Mean Corpuscular Hemoglobin 30.5 pg (25.0-35.0); Mean Corpuscular Volume 89 fL (80-100); Monocytes # (Auto) 0.7 Thou/mm3 (0.0-0.8); Monocytes % (Auto) 10 % (0-12); Neutrophils # (Auto) 3.8 Thou/mm3 (1.8-7.7); Neutrophils % (Auto) 53 % (37-80); Nucleated Red Blood Cell # 0.00 Thou/mm3 (0.00-0.00); Nucleated Red Blood Cell % 0 /100 WBC (0); Platelet Count 315 Thou/mm3 (140-440); RDW Standard Deviation 39.7 fL (36.4-46.3); Red Blood Count 4.65 Miln/mm3 (4.00-5.20); White Blood Count 7.2 Thou/mm3 (3.6-11.0)
[2025-03-23 08:20] LABS: Beta Hydroxybutyrate 0.1 mmol/L (<0.6)
[2025-03-23 08:27] LABS: Alanine Aminotransferase 17 U/L (10-49); Albumin, Serum 4.5 gm/dL (3.4-4.8); Albumin/Globulin Ratio 2.1 (1.2-2.2); Alkaline Phosphatase 97 U/L (46-116); Anion Gap 11 (7-16); Aspartate Amino Transferase 18 U/L (0-34); BUN/Creatinine Ratio 16 Ratio (12-20); Bilirubin,Total 0.5 mg/dL (0.3-1.2); Blood Urea Nitrogen 13 mg/dL (9-23); Calcium 9.4 mg/dL (8.3-10.6); Calcium (Corrected) 9.4 mg/dL (8.5-10.1); Carbon Dioxide 26.4 mMol/L (20.0-31.0); Chloride 105 mMol/L (98-107); Creatinine (Component) 0.8 mg/dL (0.6-1.3); Estimated Creatinine Clearance 79.6 mL/min (>60); Globulin 2.1 gm/dL (2.3-3.5); Glucose 129 mg/dL (74-106); Osmolality,Calculated 285 (275-295); Potassium 3.5 mMol/L (3.4-5.1); Sodium 142 mMol/L (136-145); Total Protein 6.6 gm/dL (5.7-8.2); eGFR > 60 See Note
[2025-03-23 09:08] LABS: Base Excess, Venous 2 (-3-3); O2 Saturation, Venous 45 % (96-97); PCO2, Venous 39 mmHg (36-56); PO2, Venous 22 mmHg (15-58); pH, Venous 7.44 (7.33-7.66)
[2025-03-23 09:32] LABS: Collection Type, Urine Clean Catch
[2025-03-23 09:40] LABS: Bilirubin,Urine Negative (Negative); Blood,Urine Negative (Negative); Color,Urine Yellow (Lt Yel-Yel); Glucose, Urine Trace (Negative); Ketones,Urine Negative (Negative); Leukocyte Esterase,Urine Positive (Negative); Nitrite,Urine Negative (Negative); PH,Urine 6.0 (5.0-7.0); Protein,Urine Trace (Neg - Trace); RBC,Urine 4 /hpf (0-3); Specific Gravity,Urine 1.031 (1.001-1.035); Squamous Epithelial Cell,Urine 4 /hpf (0-5); Urobilinogen,Urine Negative mg/dL (0.0-1.0); WBC,Urine 7 /hpf (0-5)
[2025-03-23 09:46] LABS: Clarity,Urine Hazy (Clear/Hazy)
[2025-03-23 09:53] LABS: Amphetamine/Methamp Scrn,U Negative (Negative); Barbiturate Screen,Urine Negative (Negative); Benzodiazepines Screen,Urine Negative (Negative); Benzoylecgonine Screen, Ur Negative (Negative); Fentanyl Screen,Urine Negative (Negative); Opiate Screen,Urine Negative (Negative); THC Screen,Urine Negative (Negative)
[2025-03-23 10:38] VITALS: BP 140/84; PULSE 65; RESP 18; TEMP 36.4; O2SAT 98
[2025-03-23] MEDS: HYDROcodone/APAP 5/325 TABLET 1 TAB PO (10:48)
--- NOTE | 2025-03-23 13:55 | EDNOTE_ITS ---
ED Back Injury Pain ARONE/HPI General Chief Complaint: Back Pain/Injury Stated Complaint: LEFT LOWER BACK PAIN RADIATING TO BACK Time Seen by Provider: 03/23/25 07:03 Arrival date/time: 03/23/25 06:33 Limitations: no limitations REN MENDEZ MD Complaint: back pain Onset (ago): day(s) Duration: intermittent Similar Symptoms Previously: Yes Location: lumbar spine and left flank Severity: severe Quality: sharp Radiation: other (left hip ) Severity scale (1-10): 10 Relieving factors: none Exacerbating factors: movement Context: while lifting and turning/twisting Treatments prior to arrival: NSAIDS REN / HPI Narrative: 64-year-old female with history of laminectomy states here for low back pain that radiates to her left flank and bilateral hips but mostly the left. States was ambulating few days ago and thought her bone was going to break. She is very concerned about the pain she is having. Does not recall history of kidney stones. States she is afraid to take narcotics due to having accidental overdose from pain shot where she stopped breathing. Takes Tylenol but it is not helping anymore. Has appointment pending with her PCP who stated waiting for an off for an MRI. States however this pain was more severe than usual and decided to come into the ER. No fever. Denies history of IV drug use. States she worries because of her history of diabetes. Related Data Home Medications ?Medication ?Instructions ?Recorded ?Confirmed metformin 500 mg tablet 500 mg PO BID DIABETES ##0 0 06/27/12 03/19/19 gabapentin 300 mg capsule 300 mg PO TID #0 caps 03/19/19 levothyroxine 25 mcg capsule 25 mcg PO QDAY 01/04/18 1 05/19/18 simvastatin 20 mg tablet 20 mg PO HS 01/04/18 9 lisinopril 10 mg tablet 10 mg PO QDAY 02/20/1903/19 ergocalciferol (vitamin D2) 1,250 50,000 unit PO QWEEK 03/19/19 03/19/19 mcg (50,000 unit) capsule (Vitamin D2) sitagliptin phosphate 100 mg 100 mg PO QDAY 03/19/19 1 05/19/18 tablet (Januvia) Previous Rx's ?Medication ?Instructions ?Recorded diazepam 2 mg tablet (Valium) 2 mg PO BID PRN anxiety #10 tabs 06/19/23 azithromycin 250 mg tablet See Rx Instructions PO .COM PLEX #6 04/28/24 (Zithromax Z-Silverio) tabs famotidine 20 mg tablet (Acid 20 mg PO BID #30 tabs Controller) ondansetron 4 mg disintegrating 4 mg PO QID PRN nausea and 10/17/24 tablet vomiting #20 tabs hydrocodone 5 mg-acetaminophen 325 1 tab PO BID PRN pa in 7 days #14 03/23/25 mg tablet tabs nitrofurantoin 100 mg PO Q12H 7 days #14 ca ps 03/23/25 monohydrate/macrocrystals 100 mg capsule (Macrobid) Allergies Allergy/AdvReac Type Severity Reaction Status Date / Time adhesive tape Allergy Severe Rash Verified 03/23/25 06:34 hydroxyzine Allergy Severe Hives Verified 03/23/25 06:34 prochlorperazine Allergy Severe Swelling Verified 03/23/25 06:34 temazepam (From Restoril) Allergy Severe Hives Verified 03/23/25 06:34 Review of Systems Review of Systems Systems Reviewed: All systems reviewed, normal except as documented Constitutional Constitutional: Denies fever(s) Gastrointestinal Gastrointestinal: Denies abdominal pain Genitourinary Genitourinary: Denies difficulty voiding and Denies hematuria Musculoskeletal Musculoskeletal: Reports as per HPI ED Exam General Limitations: Present no limitations General appearance: Present alert and in no apparent distress Head Head exam: Present atraumatic Eye Eye exam: Present normal appearance, PERRL and EOMI ENT ENT exam: Present normal exam, normal oropharynx and mucous membranes moist Neck Neck exam: Present normal inspection, full ROM and trachea midline Chest Chest inspection: Present normal inspection and symmetric chest wall rise Respiratory Respiratory exam: Present normal lung sounds bilaterally Cardiovascular Cardiovascular exam: Present regular rate, normal rhythm and normal heart sounds Abdominal Exam Abdominal exam: Present soft, normal bowel sounds and other (Left CVAT) Extremities Exam Extremities exam: Present normal inspection, full ROM and tenderness (Bilateral hip TTP slow range of motion) Back Exam Back exam: Present normal inspection, full ROM, CVA tenderness (L), paraspinal tenderness, sciatic notch tenderness (L), straight leg raise (L) and other Neurological Exam Neurological exam: Present alert, oriented X3 and CN II-XII intact Psychiatric Psychiatric exam: Present normal affect and normal mood Skin Skin exam: Present warm, dry, intact and normal color Course Quality Measures none Orders Category Date Time Status CT abdomen pelvis wo con Stat Exams 03/23/25 07:21 Completed XR hip LT w pelvis 2-3V Stat Exams 03/23/25 07:21 Completed XR lumbar spine min 4V Stat Exams 03/23/25 07:21 Completed CBC Stat Lab 03/23/25 07:44 Completed CMP [Comprehensive Metabolic Panel] Stat Lab 03/23/25 07:44 Completed Drug Screen,Urine Stat Lab 03/23/25 09:25 Completed Ketone [Beta Hydroxybutyrate] Stat Lab 03/23/25 07:44 Completed UA [Urinalysis] Stat Lab 03/23/25 09:25 Completed VBG [Venous Blood Gas] Stat Lab 03/23/25 08:51 Completed HYDROcodone*/APAP 5/325 [[place] 5/325] Med 03/23/25 07:21 Discontinued 1 tab PO X1 ONE HYDROcodone*/APAP 5/325 [[place] 5/325] Med 03/23/25 10:38 Discontinued 1 tab PO X1 ONE Ketorolac Inj [Toradol Inj] Med 03/23/25 07:21 Discontinued 30 mg IM X1 ONE Vital Signs Vital signs: Vital Signs Temperature 98.2 F 03/23/25 07:04 Pulse Rate 70 03/23/25 07:04 Respiratory Rate 18 03/23/25 07:04 Blood Pressure 125/80 03/23/25 07:04 Pulse Oximetry (%) 100 03/23/25 07:04 Oxygen Delivery Method Room Air 03/23/25 07:04 Back Pain / Injury Patient data External records reviewed:: [facility] previous records Clinical information provided by:: patient and family Social determinants that could affect healthcare access:: other (specify) Patient has the following chronic illnesses:: Diabetes history of laminectomy How is presenting disease/condition affected by chronic disease/condition?: exacerbated by Evaluation data The following diagnostics were reviewed and interpreted by me:: lab results and radiology exam(s) Lab and/or radiology exams considered but not ordered:: MRI was considered however unlikely to change the course of today's treatment Interpretation Summary: Labs essentially unremarkable other than UA suggestive of a UTI Lumbar x-ray and hip x-ray show arthritis CT of abdomen pelvis no acute deformities other than hardware from spine surgery Medications / Prescriptions Medications or Prescriptions considered but not ordered:: Steroids were considered however patient decided against Medication administrations:: Medication Administration History Discontinued Medications Hydrocodone Bitart/Acetaminophen (Hydrocodone/Apap 5/325 Tablet) 1 tab PO X1 ONE Stop: 03/23/25 07:22 Last Admin: 03/23/25 07:31 Dose: Not Given Documented By: CINDY Non-Admin Reason: Patient Refused Hydrocodone Bitart/Acetaminophen (Hydrocodone/Apap 5/325 Tablet) 1 tab PO X1 ONE Stop: 03/23/25 10:39 Last Admin: 03/23/25 10:48 Dose: 1 tab Documented By: CINDY Ketorolac Tromethamine (Ketorolac Inj 30 Mg/Ml Vial) 30 mg IM X1 ONE Stop: 03/23/25 07:22 Last Admin: 03/23/25 07:31 Dose: 30 mg Documented By: CINDY See above Consultations Consultation(s) initiated? (list below): No Diagnosis Differential diagnosis back pain/injury: lumbar radiculopathy, sciatica, strain of lumbar region, renal colic, pyelonephritis and thoracic back pain Most likely diagnosis given after review of the tests above:: UTI Postlaminectomy syndrome Arthritis of lumbar and bilateral hips Admission Indicated Admission indicated?: not indicated Admission Request Was there a request for admission?: No Disposition Plan Disposition Plan: Discharge Discharge Attestation Discharge Attestation: The patient and all family members were given an opportunity to ask questions an d understood the discharge instructions. Discharge instructions specifically effects, indications for sooner follow up or return to the emergency department, and the expected course of current diagnosis. Patient condition: Stable Discharge Plan Plan Patient Disposition: HOME (Self Care) Discharge Disposition comment: f.u with pcp in 2-3days Prescriptions/Referrals Prescriptions/Med Rec: New hydrocodone-acetaminophen 5-325 mg tablet 1 tab PO BID MDD 2 PRN (Reason: pain) 7 Days Qty: 14 0RF nitrofurantoin monohyd/m-cryst [Macrobid] 100 mg capsule 100 mg PO Q12H 7 Days Qty: 14 0RF Rx Instructions: must administer with a meal/food No Action metformin 500 mg Tablet 500 mg PO BID Qty: 0 gabapentin 300 MG capsule 300 mg PO TID Qty: 0 lisinopril 10 mg Tablet 10 mg PO QDAY simvastatin 20 mg Tablet 20 mg PO HS levothyroxine 25 mcg Capsule 25 mcg PO QDAY ergocalciferol (vitamin D2) [Vitamin D2] 50,000 unit Capsule 50,000 unit PO QWEEK Januvia 100 mg Tablet 100 mg PO QDAY diazepam [Valium] 2 mg tablet 2 mg PO BID PRN (Reason: anxiety) Qty: 10 0RF azithromycin [Zithromax Z-Silverio] 250 mg tablet See Rx Instructions PO .COMPLEX Qty: 6 0RF Rx Instructions: For 250 mg dose pack: take 500 mg today (day 1), then 250 mg for 4 days (days 2-5) ondansetron 4 mg tablet,disintegrating 4 mg PO QID PRN (Reason: nausea and vomiting) Qty: 20 0RF famotidine [Acid Controller] 20 mg tablet 20 mg PO BID Qty: 30 0RF Referrals: No Primary/Family,Physician [Primary Care Provider] - In 1 week Problem List Clinical Impression: Lumbar post-laminectomy syndrome, Osteoarthritis, hip, bilateral, UTI (urinary tract infection), Sciatica Patient/Caregiver Discharge Instructions Education Materials: Hip Osteoarthritis, ED Sciatica Print Language: [employer] Stand Alone Forms: Marine Award Info., Patient Portal Info Letter PA/COMMUNICATIONS DEPARTMENT HEAD Supervising Physician PA/COMMUNICATIONS DEPARTMENT HEAD Supervising Physician: Dr. Serrano
== END 2025-03-23 11:14 | disposition home or self-care (01) ==
PROVIDERS: Physician Assistant; Emergency Provider Emergency Medicine
DX: M96.1 Postlaminectomy syndrome, not elsewhere classified (principal); M16.0 Bilateral primary osteoarthritis of hip; M54.41 Lumbago with sciatica, right side; M54.42 Lumbago with sciatica, left side; N39.0 Urinary tract infection, site not specified
CPT/HCPCS: 36415; 72110; 73502; 74176; 80053; 80307; 81001; 82010; 82803; 85025; 96372; 99284; J1885; A9270

== ENCOUNTER → 2025-04-12 | Outpatient (CLI) | payer MEDICAID, SELFPAY ==
--- NOTE | 2025-04-12 16:00 | XR_ITS ---
Examination: CT abdomen, without intravenous contrast. CT pelvis, without intravenous contrast. CT abdomen, with intravenous contrast. CT pelvis, with intravenous contrast. 2-D sagittal coronal reconstructions. Date and time of exam: April 12, 2025, 1649 hours, comparison March 23, 2025 INDICATIONS: Diagnosis of brain carcinoma 2005, left lower abdomen pain noticed beginning 1 year ago CTDI: vol (mGy) 29.9 DLP: (mGycm) 1374 Technique: Multiple 3.0 axial images of the abdomen and pelvis without intravenous contrast, 3.0 mm slice thickness. Multiple 3.0 postcontrast images abdomen and pelvis also obtained, post intravenous injection 60 cc [id number] 2-D sagittal and coronal reconstructions. Low dose protocols were performed. One or more of the following dose reduction techniques were used; automated exposure control, adjustment of the mA and/or KV according to patient size, use of iterative reconstruction technique. Findings: No visualized liver or splenic lesion Absent gallbladder No pancreatic or adrenal mass Mild renal scarring, no hydronephrosis Aorta normal size No abdominal or pelvic lymphadenopathy Normal appendix Colonic diverticulosis, no diverticulitis Absent uterus Contracted urinary bladder No pelvic mass Lumbar stabilization L3-S1 with satisfactory alignment Prominent osteopenia Hip joints well-maintained IMPRESSION: Bilateral renal scarring, no hydronephrosis or ureteral calculi Normal appendix Colonic diverticulosis, no diverticulitis No bowel obstruction No abdominal or pelvic lymphadenopathy
== END | disposition home or self-care (01) ==
PROVIDERS: PCP Physician Assistant Medical; Referring Provider Nurse Practitioner; Visit Provider Nurse Practitioner
DX: N28.89 Other specified disorders of kidney and ureter (principal); K57.30 Diverticulosis of large intestine without perforation or abscess without bleeding
CPT/HCPCS: 74178; A4649; Q9967